=== PATIENT | female | born 1970 | race Caucasian/White ===

== ENCOUNTER 2017-04-20 19:21 | Emergency (ER) | payer MEDICAID ==
[~2017-04-20] VITALS: Ht 162.6 cm; Wt 60.8 kg
--- NOTE | 2017-04-20 20:02 | Emergency Room Report ---
See Addendum History of Present Illness Time Seen by 1999 Presenting Problem in Triage Pt arrived:Walked Presenting Problem:DIARRHEA FOR 2 DAYS, RIGHT SIDE BACK PAIN FOR A DAY. 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 N Clinical Suspician of Infection? N Mental Status: 1 - Regular (Normal Baseline) Sepsis Risk:Low Sepsis Risk Have you (or family members/close friends) recently traveled outside the [place]? N If Yes, where/when: Have you had exposure to infectious disease within the past month? N TB? Other? Specify: Source patient, RN notes reviewed, old records Exam Limitations no limitations Comment pt with 2 day hx of diarrhea with abd pain w/o blood in stool - no known contacts Cardiac Chest Pain Chest pain indicative of cardiac No Timing/Duration this evening Severity moderate ALLERGIES Coded Allergies: ketorolac (From TORADOL) (04/20/17) History Medical History General CAD? No Angina: No VA: No Hypertension? No Hyperlipidemia? No CHF? No DVT? No PE? No COPD? No Asthma? No Anemia? No GERD? No Gastric ulcers? No GI Bleed? No Hernia? No Thyroid Problems? No Hypothyroidism? No CVA? No Seizures? No Diabetes? No Renal Insuffiency? No End Stage Renal Disease? No UTI? No Stones? Yes BPH? No GB Disease: No Nephritic Syndrome? No Asplenia? No Hepatitis? No Sickle Cell Disease? No Arthritis? No Migraines? Yes MRSA? No HIV? No TB? No Anxiety? Yes Depression? 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 Respiratory denies cough, denies shortness of breath, denies wheezing Cardiovascular denies chest pain, denies palpitations, denies syncope Gastrointestinal see HPI, abdominal pain, diarrhea, nausea, denies vomiting Genitourinary denies: dysuria, frequency, hesitancy, hematuria. Musculoskeletal denies back pain, denies joint pain, denies joint swelling, denies neck pain Skin denies rash Psychiatric/Neurological denies headache, denies seizure Physical Exam Vital Signs Vital Signs Date Time Temp Pulse Resp B/P Pulse O2 O2 Flow FiO2 Ox Delivery Rate 04/207 64 20 146/84 98 04/20 1930 98.7 68 22 97 04/20 1924 98.7 86 22 179/82 98 - WBC >12,000 or <4,000 or 10% bands? 2 or more SIRS Criteria Met? B/P:146/84 MAP:114 Creatinine >2.0? UA output<0.5ml/kg/hr for 2 hrs? Platelet count >100,000? Lactate >2.0mmol/1? INR >1.2 or PTT > than 60 sec? Evidence of Organ Dysfunction? Provider documented clinical suspician of infection? N Sepsis Criteria Count: 1 Sepsis Risk: Low Sepsis Risk General Appearance no apparent distress Eye Exam - bilateral eye PERRL, bilateral eye EOMI Ear, Nose, Throat normal ENT inspection Neck full range of motion Respiratory Status No: respiratory distress. 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 No Results/Orders Laboratory Tests 04/20/170: Stl Cyclospora species Pending, Stool Rotavirus (PCR) Pending, Stool Campylobacter PCR Pending, Stool Giardia Lamblia PCR Pending, Stl Norovirus GI/ GII PCR Pending, Adenovirus (PCR) Pending, C. difficile Tox (PCR) Pending, E. coli (PCR) Pending, Yersinia (PCR) Pending 04/20/17 2030: Sodium 141, Potassium 2.6 *L, Chloride 104, Carbon Dioxide 29, BUN 9, Creatinine 0.7, Estimated Creat Clear 96, Estimated GFR (MDRD) 90, Glucose 98, Calcium 9.1, Total Bilirubin 0.3, AST 4 L, ALT 10 L, Alkaline Phosphatase 106, Total Protein 7.4, Albumin 4.1, Globulin 3.3 H, Albumin/Globulin Ratio 1.2, Amylase 40, Lipase 83, WBC 7.3, RBC 4.28, Hgb 13.5, Hct 39.5, MCV 92.1, RDW 13.1, Plt Count 235, MPV 7.7, Gran % 62.9, Gran # 4.6, Lymphocytes % 30.0, Monocytes % 5.3 , Eosinophils % 1.1, Basophils % 0.7, Lymphocytes # 2.2, Monocytes # 0.4, Eosinophils # 0.1, Basophils # 0.1, PUBS MCHC 34.3, MCH 31.6 H Current Medication Orders Sig/Wilfrid Start time Last Medication Dose Route Stop Time Status Admin Sodium Chloride 1,000 ML .Q1H1M 04/20 2100 DC 04/20 IV 04/20 Sodium Chloride 10 ML PRN PRN 04/20 2100 AC IV 04/21 2050 Sodium Chloride 1,000 ML .STK-MED ONE 04/20 2052 DC IV Sodium Chloride 10 ML PRN PRN 04/20 2015 AC IV 04/21 2003 Orders Procedure Date/time Status DIET-NOTHING BY MOUTH 04/[address] ABD & PELVIS W/O CONTRAST 04/[address] SCAN REQ 04/20 2004 Complete IV SALINE LOCK 04/20 2004 Active URINALYSIS/COMPLETE 04/20 2004 Active LIPASE 04/20 2004 Complete DIARRHEA PANEL, PCR 04/20 2004 Active COMPLETE METABOLIC PANEL 04/20 2004 Complete CBC WITH AUTO DIFF 04/20 2004 Complete AMYLASE 04/20 2004 Complete XRAY/CT/US XRAY/CT/US CT abdomen, pelvis CT interpretation by discussed w/radiologist Time results known: 2215 CT Results abnormal (see report) Departure Departure Time of Disposition 2215 Disposition Against Medical Advice Clinical Impression Primary Impression: Diarrhea Qualifiers: Diarrhea type: unspecified type Qualified Code: R19.7 - Diarrhea, unspecified Secondary Impressions: Hypokalemia Condition STABLE Patient Instructions DI for Hypokalemia Additional Instructions fluids and call pcp for follow up - Discharge Counseling Counseled pt/family regarding diagnosis, follow up needs ED Critical Care Critical Care No at [id number]
[2017-04-20 20:50] LABS: HEMOGLOBIN 13.5 g/dL (12.2-16.2); LYMPH # 2.2 K/mm3 (0.7-4.5)
[2017-04-20 21:46] LABS: AEROMONAS NOT DETECTED (NOT DETECTE); ASTROVIRUS NOT DETECTED (NOT DETECTE); CYCLOSPORA CAYETANENSIS NOT DETECTED (NOT DETECTE); E COLI O157 NOT DETECTED (NOT DETECTE); ENTEROAGGREGATIVE E COLI NOT DETECTED (NOT DETECTE); ENTEROPATHOGENIC E COLI NOT DETECTED (NOT DETECTE); ENTEROTOXIGENIC E COLI NOT DETECTED (NOT DETECTE); NOROVIRUS NOT DETECTED (NOT DETECTE); SAPOVIRUS NOT DETECTED (NOT DETECTE); SHIGA-LIKE TOXIN PROD. E COLI NOT DETECTED (NOT DETECTE); SHIGELLA/ENTEROINVASIVE E COLI NOT DETECTED (NOT DETECTE); VIBRIO CHOLERAE NOT DETECTED (NOT DETECTE)
[2017-04-20 22:22] VITALS: BP 146/84
--- NOTE | 2017-04-20 22:54 | RADIOLOGY REPORT PS360 ---
CT ABD PELVIS W/O CONTRAST CLINICAL INDICATION: Right flank pain, history of kidney stones ABD PAIN, DIARRHEA ORDERING PHYSICIAN: Jose Angel Pack MD PATIENT AGE: 46 years COMPARISON: None TECHNIQUE: Axial images obtained with sagittal and coronal reformats. PROCEDURE: Oral Contrast: None IV Contrast: None . FINDINGS: The lung bases are clear. Small isodensity of the liver probably due to small cysts. The spleen, adrenal glands, and pancreas are unremarkable. There are punctate bilateral renal calculi. There is minimal prominence of the right renal pelvis. Unremarkable urinary bladder. Para no intestinal obstruction or free air. There is been prior hysterectomy. The appendix has an unremarkable appearance. No evidence of diverticulitis. No acute bony anomalies. IMPRESSION: 1. Nonobstructing bilateral nephrolithiasis. 2. Minimal prominence of the right renal pelvis. This is nonspecific and could be related to recently passed stone or urinary tract infection.
== END 2017-04-20 22:23 | disposition left against medical advice (07) ==
LOC: ER 19:21
PROVIDERS: Emergency Medicine
DX: R19.7 Diarrhea, unspecified (principal); E87.6 Hypokalemia; Z53.21 Procedure and treatment not carried out due to patient leaving prior to being seen by health care provider; F17.210 Nicotine dependence, cigarettes, uncomplicated